=== PATIENT | male | born 1990 | race Caucasian/White ===

== ENCOUNTER 2022-01-22 15:18 | Outpatient (RCR) | payer OTHER ==
[~2022-01-22 15:18] MED LIST: CEPHALEXIN500 M1 PO; LORTAB 5/500 501 TAB PO; NO HOME MEDICATIONS
== END 2022-02-09 | disposition home or self-care (01) ==
LOC: WSOH
DX: J06.9 Acute upper respiratory infection, unspecified (principal); Y99.0 Civilian activity done for income or pay